=== PATIENT | female | born 1990 | race African-American/Black ===

== ENCOUNTER 2016-12-14 04:42 | Inpatient (IN) | payer MEDICARE, OTHER ==
[2016-12-14 07:53] VITALS: BP 109/69; PULSE 103; RESP 18; O2SAT 97
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
== END 2016-12-14 13:15 | disposition home or self-care (01) | DRG 781 ==
LOC: H260 07:37
PROVIDERS: ADMIT Psychiatry & Neurology Psychiatry; ATTEND Psychiatry & Neurology Psychiatry
DX: O99.343 Other mental disorders complicating pregnancy, third trimester (principal); F28 Other psychotic disorder not due to a substance or known physiological condition; F20.9 Schizophrenia, unspecified; O99.333 Smoking (tobacco) complicating pregnancy, third trimester; F17.210 Nicotine dependence, cigarettes, uncomplicated; Z3A.35 35 weeks gestation of pregnancy